=== PATIENT | male | born 1960 | race Caucasian/White ===

== ENCOUNTER 2020-08-29 00:01 | Emergency (ER) | payer OTHER ==
--- NOTE | 2020-08-29 00:20 | EDM.PDOC ---
ED HPI GENERAL MEDICAL PROBLEM - General Chief Complaint: Headache Stated Complaint: poss stroke/ chest pain Time Seen by Provider: 08/29/20 00:11 - History of Present Illness INITIAL COMMENTS - FREE TEXT/NARRATIVE: 60-year-old male presents the emergency room with a severe headache. This headache started at 11:00 our time the patient was working on his taxes and then developed severe left-sided headache on the back of his head. He has not had any noticed areas in the feet any weakness speech difficulties or difficulty with ambulation. The patient did not feel quite right this afternoon he took 2 baby aspirin. He is taking a total of 3 baby aspirin as he normally takes 1 every morning. Other than a baby aspirin in the morning the patient is not on any routine medication other than a heartburn medication, he cannot recall what it is. He does take some vitamins. The patient denies any chest pain, however, somewhere it was mentioned he had had some chest pain but the patient denies of this. Headache Pain Score (Numeric/FACES): 8 - Related Data Allergies Allergy/AdvReac Type Severity Reaction Status Date / Time No Known Allergies Allergy Verified 08/29/20 00:10 Home Meds: Home Meds . [No Known Home Meds] 08/29/20 [History] ED ROS GENERAL - Review of Systems Review Of Systems: See Below Constitutional: Reports: No Symptoms HEENT: Reports: No Symptoms Respiratory: Reports: No Symptoms Cardiovascular: Reports: No Symptoms. Denies: Chest Pain Endocrine: Reports: No Symptoms GI/Abdominal: Reports: No Symptoms : Reports: No Symptoms Musculoskeletal: Reports: Neck Pain. Denies: No Symptoms Skin: Reports: No Symptoms Neurological: Reports: Headache Psychiatric: Reports: No Symptoms Hematologic/Lymphatic: Reports: No Symptoms Immunologic: Reports: No Symptoms ED EXAM, GENERAL - Physical Exam Exam: See Below Exam Limited By: No Limitations General Appearance: Alert, No Apparent Distress Eye Exam: Bilateral Eye: EOMI, Normal Inspection, PERRL Ears: Normal External Exam, Normal Canal, Hearing Grossly Normal, Normal TMs Nose: Normal Inspection, Normal Mucosa, No Blood Throat/Mouth: Normal Inspection, Normal Lips, Normal Gums, Normal Oropharynx, Normal Voice, No Airway Compromise Head: Atraumatic Neck: Normal Inspection, Other (Vague left-sided neck pain) Respiratory/Chest: No Respiratory Distress, Lungs Clear, Normal Breath Sounds Cardiovascular: Regular Rate, Rhythm, No Edema, No Murmur GI/Abdominal: Normal Bowel Sounds, Soft, Non-Tender Back Exam: Normal Inspection, Full Range of Motion. No: CVA Tenderness (L), CVA Tenderness (R) Extremities: Normal Inspection, Normal Range of Motion, No Pedal Edema Neurological: Alert, Oriented, CN II-XII Intact, Normal Cognition, No Motor/Sensory Deficits Psychiatric: Normal Affect, Normal Mood Skin Exam: Warm, Dry, Intact Course - Vital Signs Last Recorded V/S: Last Vital Signs Temp 36.7 C 08/29/20 00:07 Pulse 64 08/29/20 01:04 Resp 16 08/29/20 01:04 BP 142/79 H 08/29/20 01:04 Pulse Ox 97 08/29/20 01:04 - Orders/Labs/Meds Orders: Active Orders 24 hr Category Date Time Status EKG Documentation Completion [RC] STAT Care 08/29/20 00:20 Active Chest 1V Frontal [CR] Stat Exams 08/29/20 00:20 Taken Head wo Cont [CT] Stat Exams 08/29/20 00:20 Taken CORONAVIRUS COVID-19 JOVAN [MOLEC] Stat Lab 08/29/20 00:42 Received Labs: Laboratory Tests 08/29/20 08/29/20 Range/Units 00:10 00:10 PT 10.9 (9.7-12.0) SECONDS INR 1.02 APTT 23.2 (21.7-31.4) SECONDS Sodium 144 (136-145) mEq/L Potassium 3.1 L (3.5-5.1) mEq/L Chloride 106 (98-107) mEq/L Carbon Dioxide 27 (21-32) mEq/L Anion Gap 14.1 (5-15) BUN 15 (7-18) mg/dL Creatinine 1.2 (0.7-1.3) mg/dL Est Cr Clr Drug Dosing 67.98 mL/min Estimated GFR (MDRD) > 60 (>60) mL/min BUN/Creatinine Ratio 12.5 L (14-18) Glucose 150 H (80-115) mg/dL Calcium 9.0 (8.5-10.1) mg/dL Total Bilirubin 0.4 (0.2-1.0) mg/dL AST 22 (15-37) U/L ALT 49 (16-63) U/L Alkaline Phosphatase 87 (46-116) U/L Troponin I < 0.017 (0.00-0.056) ng/mL Total Protein 7.6 (6.4-8.2) g/dl Albumin 4.1 (3.4-5.0) g/dl Globulin 3.5 gm/dL Albumin/Globulin Ratio 1.2 (1-2) Meds: Medications Discontinued Medications Generic Name Dose Route Start Last Admin Trade Name Penelope PRN Reason Stop Dose Admin Diphenhydramine HCl 25 mg 08/29/20 00:24 Benadryl IVPUSH 08/29/20 00:25 ONETIME ONE Fentanyl 50 mcg 08/29/20 01:02 Sublimaze IVPUSH 08/29/20 01:03 ONETIME ONE Fentanyl 50 mcg 08/29/20 01:02 08/29/20 01:06 Sublimaze IVPUSH 08/29/20 01:03 50 mcg ONETIME ONE Administration Fentanyl Confirm 08/29/20 01:04 08/29/20 01:31 Sublimaze Administered 08/29/20 01:05 Not Given Dose 100 mcg .ROUTE .STK-MED ONE Lactated Ringer's 1,000 mls @ 150 mls/hr 08/29/20 00:30 Ringers, Lactated IV ASDIRECTED [facility] Prochlorperazine Edisylate 10 52 mls @ 150 mls/hr 08/29/20 00:24 mg/ Sodium Chloride IV 08/29/20 00:44 ONETIME ONE Levetiracetam 1,000 mg/ Sodium 110 mls @ 400 mls/hr 08/29/20 01:17 Chloride IV 08/29/20 01:31 ONETIME ONE Ondansetron HCl 4 mg 08/29/20 01:29 Zofran IVPUSH 08/29/20 01:30 ONETIME ONE Ondansetron HCl 4 mg 08/29/20 01:30 Zofran IVPUSH 08/29/20 01:31 ONETIME ONE - Re-Assessments/Exams Free Text/Narrative Re-Assessment/Exam: 08/29/20 01:52 CT was rapidly obtained which is concerning for a subarachnoid hemorrhage extending into the ventricles. This was confirmed by radiology with suspicion of this coming from the [place] such as seen with an aneurysm rupture. [facility] was contacted Case was discussed with Dr. Pena who suggested we go to [place]. I did discuss this with Sadaf and case was discussed with Dr. Heredia neurosurgeon who is kindly willing to accept the patient and he recommends treating his blood pressure to keep less than 140 and giving him a gram of Ke pp[place]. However there was no flights available. At this time [facility] did call us back and thought they had a flight. Apparently weather had the flight services shut down. We checked with all the ground services and nobody has the crew or is willing to make the transfer. Was also discussed with Dr. Teresa at [facility] in [place]. Departure - Departure Time of Disposition: 01:00 Disposition: DC/Tfer to [facility] 02 Clinical Impression: Spontaneous subarachnoid hemorrhage - Discharge Information Forms: ED Department Discharge Sepsis Event Note (ED) - Evaluation Sepsis Screening Result: No Definite Risk - Focused Exam Vital Signs: Vital Signs Temp Pulse Resp BP Pulse Ox 08/29/20 01:04 64 16 142/79 H 97 08/29/20 00:07 36.7 C 77 18 148/96 H 97 - My Orders Last 24 Hours: My Active Orders 08/29/20 00:20 EKG Documentation Completion [RC] STAT Chest 1V Frontal [CR] Stat Head wo Cont [CT] Stat 08/29/20 00:42 CORONAVIRUS COVID-19 JOVAN [MOLEC] Stat - Assessment/Plan Last 24 Hours: My Active Orders 08/29/20 00:20 EKG Documentation Completion [RC] STAT Chest 1V Frontal [CR] Stat Head wo Cont [CT] Stat 08/29/20 00:42 CORONAVIRUS COVID-19 JOVAN [MOLEC] Stat
[2020-08-29] MEDS ORDERED: diphenhydrAMINE 50 MG/ML SDV IVPUSH ONE (00:24)
[2020-08-29] MEDS ORDERED: Prochlorperazine 10 MG in Sodium Chloride 0.9% 50 ML IV ONE (00:24)
[2020-08-29] MEDS ORDERED: Lactated Ringers 1,000 ML IV SCH ×2 (00:30→02:15)
[2020-08-29] MEDS ORDERED: fentaNYL 100 MCG/2 ML SDV IVPUSH ONE ×2 (01:02)
[2020-08-29] MEDS ORDERED: fentaNYL 100 MCG/2 ML SDV ONE (01:04)
[2020-08-29] MEDS ORDERED: levETIRAcetam 1,000 MG in Sodium Chloride 0.9% 100 ML IV ONE (01:17)
[2020-08-29] MEDS ORDERED: Ondansetron 4 MG/2 ML SDV ONE (01:29)
[2020-08-29] MEDS ORDERED: Ondansetron 4 MG/2 ML SDV IVPUSH ONE ×2 (01:29→01:30)
[2020-08-29] MEDS ORDERED: Labetalol 100 MG/20 ML MDV IVPUSH ONE (01:37)
[2020-08-29] MEDS ORDERED: HYDROmorphone 0.5 MG/0.5 ML Syringe IVPUSH ONE (01:49)
[2020-08-29] MEDS ORDERED: Sodium Chloride 0.9% 250 ML ONE (02:19)
[2020-08-29] MEDS ORDERED: niCARdipine HCl 25 MG in Sodium Chloride 0.9% 250 ML IV SCH ×4 (02:30)
--- NOTE | 2020-08-29 08:37 | CR ---
Chest: Portable view of the chest was obtained. Comparison: No prior chest imaging is available. Heart size and mediastinum are normal. Lungs are clear with no acute parenchymal change. No acute osseous abnormality is appreciated. Impression: 1. Nothing acute is seen on portable chest x-ray. Diagnostic code #1
--- NOTE | 2020-08-29 08:41 | CT ---
Head CT Technique: Multiple axial sections through the brain were obtained. Intravenous contrast was not utilized. Reconstructed coronal and sagittal images were obtained. Findings: Diffuse blood is seen within the suprasellar cistern extending around the kevin-mesenteric cistern and into the sylvian fissure on both sides. Findings are compatible with diffuse subarachnoid hemorrhage. Small focal area of increased density is noted within the approximate area of the communicating branch of the anterior cerebral artery likely representing an aneurysm. No acute parenchymal hemorrhage is appreciated. Blood is noted around the upper cervical spine. Bone window settings were reviewed. The visualized paranasal sinuses and mastoid sinuses show nothing acute. No acute calvarial finding is appreciated. Impression: 1. 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 2. No definite acute parenchymal change is seen. 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
== END 2020-08-29 02:25 ==
LOC: JD.ED 00:01
DX: I60.9 Nontraumatic subarachnoid hemorrhage, unspecified (principal); U07.1 COVID-19
CPT/HCPCS: 36415; 70450; 71045; 80053; 84484; 85610; 85730; 87635; 93005; 96365; 96375; 99285; J1170; J1953; J2405; J3010; J7120; 99284; U0002

== ENCOUNTER 2021-06-29 10:25 | Day surgery (SDC) | payer OTHER ==
--- NOTE | 2021-06-29 09:46 | PCM.PREANE ---
Preanesthetic Assessment - Procedure Proposed Procedure: Laparoscopic Right inguinal hernia repair with mesh, possible open, possible bilateral, possible umbilical hernia repair. - Anesthesia/Transfusion/Family Hx Anesthesia History: Prior Anesthesia Reaction Type of Anesthesia Reaction: Excessive Nausea/Vomiting Family History of Anesthesia Reaction: No Transfusion History: No Prior Transfusion(s) Intubation History: Unknown - Review of Systems General: No Symptoms Pulmonary: No Symptoms (ETOH: occasionally) Cardiovascular: No Symptoms (HTN, Right chest wall plastic implant placed for chest wall stability.) Gastrointestinal: No Symptoms (GERD-controlled) Neurological: No Symptoms (History of Subarachnoid hemorrhage: 08/2020-no chronic deficits noted) Other: Reports: None - Physical Assessment NPO Status Date: 06/28/21 NPO Status Time: 22:00 Vital Signs: HR: 60 Sat: 96% Temp: 97.8 B/P: 141/60 Resp: 14 Height: 1.83 m Weight: 94 kg ASA Class: 3 Mental Status: Alert & Oriented x3 Airway Class: Mallampati = 2 Dentition: Reports: Normal Dentition, Implants (upper permanent), Caries Thyro-Mental Finger Breadths: 3 Mouth Opening Finger Breadths: 3 ROM/Head Extension: Full Lungs: Clear to Auscultation, Normal Respiratory Effort Cardiovascular: Regular Rate, Regular Rhythm, No Murmurs - Lab Values: All labs reviewed and noted and within acceptable ranges to proceed with scheduled procedure. - Imaging/EKG Impressions: EK08/29/2020: SR rate= 66 06/29/2021: wide QRS with possible junctional rhythm rate=67 CXR: negative Echocardiogram: : EF=55% 08/30/2020: EF= 80% - Allergies Allergies/Adverse Reactions: Allergies Allergy/AdvReac Type Severity Reaction Status Date / Time No Known Allergies Allergy Verified 06/28/21 18:39 - Anesthesia Plan Pre-Op Medication Ordered: None - Acknowledgements Anesthesia Type Planned: General Anesthesia Pt an Appropriate Candidate for the Planned Anesthesia: Yes Alternatives and Risks of Anesthesia Discussed w Pt/Guardian: Yes Pt/Guardian Understands and Agrees with Anesthesia Plan: Yes PreAnesthesia Questionnaire - Past Health History Medical/Surgical History: Denies Medical/Surgical History HEENT History: Reports: Impaired Vision, Other (See Below) Other HEENT History: has reading glasses Cardiovascular History: Reports: Hypertension Respiratory History: Reports: None Gastrointestinal History: Reports: GERD Genitourinary History: Reports: None PILE DRIVER History: Reports: None Musculoskeletal History: Reports: Other (See Below) Other Musculoskeletal History: left leg fracture, finger amputation Neurological History: Reports: Other (See Below) Other Neuro History: subarachnoid hemorrhage Psychiatric History: Reports: None Endocrine/Metabolic History: Reports: None Hematologic History: Reports: None Immunologic History: Reports: None Oncologic (Cancer) History: Reports: None Dermatologic History: Reports: None - Infectious Disease History Infectious Disease History: Reports: None - Past Surgical History Head Surgeries/Procedures: Reports: None HEENT Surgical History: Reports: None Cardiovascular Surgical History: Reports: None Respiratory Surgical History: Reports: None GI Surgical History: Reports: None Female Surgical History: Reports: None Male Surgical History: Reports: None Endocrine Surgical History: Reports: None Neurological Surgical History: Reports: None Musculoskeletal Surgical History: Reports: None Oncologic Surgical History: Reports: None Dermatological Surgical History: Reports: None - SUBSTANCE USE Tobacco Use Status *Q: Never Tobacco User Recreational Drug Use History: No - HOME MEDS Home Medications: Home Meds Cartilage/Collagen/Bor/Hyalur [Joint Health Tablet] 1 tab PO DAILY 06/05/21 [History] Cholecalciferol (Vitamin D3) [Vitamin D3] 400 unit PO DAILY 06/05/21 [History] Fish Oil/[place]-3 Fatty Acids [Fish Oil 1,000 MG] 1 gm PO DAILY 06/05/21 [History] Pantoprazole Sodium [Protonix] 40 mg PO DAILY 06/05/21 [History] Turmeric 400 mg PO DAILY 06/05/21 [History] Ubidecarenone [Coq-10] 100 mg PO DAILY 06/05/21 [History] Vitamin B Complex 1 tab PO DAILY 06/05/21 [History] - CURRENT (IN HOUSE) MEDS Current Meds: Current Medications Discontinued Medications Lactated Ringer's (Ringers, Lactated) 1,000 mls @ 125 mls/hr IV ASDIRECTED MAURICIO Stop: 06/08/21 23:00 Lidocaine/Sodium Bicarbonate (Lidocaine 1%/Sod Bicarbonate In Ns 8.4% 1 Ml Syringe) 0.25 ml IDERM ONETIME PRN PRN Reason: Prior to IV Start Stop: 06/08/21 18:00 Sodium Chloride (Sodium Chloride 0.9% 10 Ml Syringe) 10 ml FLUSH ASDIRECTED PRN PRN Reason: Keep Vein Open Stop: 06/08/21 18:00
[~2021-06-29 10:25] MED LIST: Lactated Ringers 1,000 ML IV SCH; Lidocaine 1%/Sod Bicarbonate in NS 8.4% 1 ML Syringe IDERM PRN; Scopolamine 1.5 MG Transdermal Patch TRDERM PRN; Sodium Chloride 0.9% 10 ML Syringe FLUSH PRN
[2021-06-29] MEDS ORDERED: Ketorolac 30 MG/ML SDV ONE (11:18)
[2021-06-29] MEDS ORDERED: Lactated Ringers 1,000 ML ONE (11:18)
[2021-06-29] MEDS ORDERED: ceFAZolin 1 GM Vial ONE (11:18)
[2021-06-29] MEDS ORDERED: Dexamethasone 4 MG/ML 5 ML MDV ONE (11:18)
[2021-06-29] MEDS ORDERED: Rocuronium 50 MG/5 ML Vial ONE ×2 (11:18→13:33)
[2021-06-29] MEDS ORDERED: Propofol 200 MG/20 ML SDV ONE (11:18)
[2021-06-29] MEDS ORDERED: Ondansetron 4 MG/2 ML SDV ONE (11:18)
[2021-06-29] MEDS ORDERED: fentaNYL 250 MCG/5 ML SDV ONE (11:19)
[2021-06-29] MEDS ORDERED: Midazolam 1 MG/ML 2 ML SDV ONE (11:19)
[2021-06-29] MEDS ORDERED: Bupivacaine 0.5% 30 ML SDV ONE ×2 (12:23→14:03)
[2021-06-29] MEDS ORDERED: HYDROmorphone 0.5 MG/0.5 ML Syringe ONE ×2 (13:10→13:14)
[2021-06-29] MEDS ORDERED: fentaNYL 100 MCG/2 ML SDV IVPUSH PRN (13:30)
[2021-06-29] MEDS ORDERED: HYDROmorphone 0.5 MG/0.5 ML Syringe IVPUSH PRN (13:30)
[2021-06-29] MEDS ORDERED: Ondansetron 4 MG/2 ML SDV IVPUSH PRN (13:30)
[2021-06-29] MEDS ORDERED: fentaNYL 100 MCG/2 ML SDV ONE (13:49)
--- NOTE | 2021-06-29 14:51 | PCM.POSTAN ---
POST ANESTHESIA ASSESSMENT - MENTAL STATUS Mental Status: Alert, Oriented - VITAL SIGNS Vital Signs: Last Vital Signs Temp 36.6 C 06/29/21 10:00 Pulse 60 06/29/21 10:00 Resp 16 06/29/21 10:00 BP 141/60 H 06/29/21 10:00 Pulse Ox 96 06/29/21 10:00 - RESPIRATORY Respiratory Status: Respiratory Rate WNL, Airway Patent, O2 Saturation Stable, Supplemental Oxygen - CARDIOVASCULAR CV Status: Pulse Rate WNL, Blood Pressure Stable - GASTROINTESTINAL GI Status: No Symptoms - PAIN Pain Score: 0 - POST OP HYDRATION Hydration Status: Adequate & Stable
--- NOTE | 2021-06-29 15:29 | OR ---
DATE OF OPERATION: 06/29/2021 SURGEON: Erick Valdez MD PREOPERATIVE DIAGNOSIS: Right inguinal hernia and umbilical hernia. POSTOPERATIVE DIAGNOSIS: Right inguinal hernia and umbilical hernia. OPERATION PERFORMED: 1. Laparoscopic right inguinal hernia repair with mesh. 2. Primary umbilical hernia repair. ESTIMATED BLOOD LOSS: 25 mL. ANESTHESIA: General endotracheal with local consisting of 0.5% Marcaine. COMPLICATIONS: None. AVIATION TECHNICIAN: Kina Foster CNP NEED FOR ASSISTANCE: Skilled assistance of nurse practitioner, Kina Foster CNP, was needed in this case. She assisted with patient positioning, holding the camera and retractors during the case, as well as incision closure at the end of the case. INDICATIONS AND CONSENT: The patient is a 61-year-old male who had a right inguinal bulge for some time that eventually started causing some pain. He came to my clinic and I evaluated him and with imaging studies, we noted that he had a right inguinal hernia. I recommended repair due to symptoms. I also noted that he had an umbilical hernia that was causing minor symptoms as he was complaining of right periumbilical pain. I recommended we proceed with right inguinal hernia repair and umbilical hernia repair at the same time. We discussed the procedures. We discussed indications, options, risks, and benefits and the patient understood. All questions were answered and informed consent was obtained. DESCRIPTION OF PROCEDURE: The patient was taken to the operating room, placed in supine position. The patient was padded appropriately. SCDs were placed. Preop antibiotics were administered. General endotracheal anesthesia was induced. A time-out was performed. Abdomen was clipped of any hair, prepped and draped in the usual sterile fashion, and we began the procedure. We began the procedure by placing a Veress needle in the Zamora's point in the left upper quadrant. Abdomen was insufflated to 15 mmHg. Then, a 5 mm trocar was placed under direct visualization of a 5.0 scope. Abdomen was entered. The patient was placed in the reverse Trendelenburg and we inspected the inguinal hernia areas. We noted a small indirect right inguinal hernia, but the right side did not have any hernias. We inspected the abdomen. There were no injuries due to Veress needle or trocar insertion. Then, we decided to proceed with a right-sided inguinal hernia repair and TEP approach which was totally extraperitoneal approach. To do this, the abdomen was desufflated. The local was infiltrated inferior to the umbilicus. Incision was made just to the right of the umbilicus. As a result of incision, subcutaneous tissues were dissected and the anterior rectus fascia was exposed. This was incised. The rectus muscle was retracted laterally exposing the posterior fascia. A balloon dissector was inserted and insufflated. This dissected the extraperitoneal space and two additional 5 mm trocars were placed in the lower midline. Then, we proceeded with exposing the Juan Carlos's ligament in the pubic area and then we dissected laterally all the way to the ASIS. Then, the hernia sac was taken down and there was a large lipoma of the cord which was also taken down. The peritoneal edge was dissected about 5 cm proximal to the hernia. Once the dissection was done, we placed a 3DMax knitted right-sided mesh and placed so that it was covering the entire myopectineal orifice and this was secured in two places; medially at the Juan Carlos's ligament with SorbaFix, and laterally, above the ASIS. 20 mL of 0.5% Marcaine were injected into the dissection area for local anesthetic and then the mesh edge was held against the abdominal wall to prevent anything from sneaking under it while desufflating and the abdomen was desufflated. Once this was done, we proceeded with closure of the anterior fascia with 0 Vicryl in a running fashion and then started doing the umbilical hernia. This was done in open way. The infraumbilical incision was extended slightly to the left and then using Metzenbaum scissors, the hernia sac was isolated. This consisted of preperitoneal fat. The contents were divided and removed, and the hernia defect measured about 1 cm. Therefore, decision was made to proceed with primary hernia repair. A 0 Vicryl was brought into the field and a running stitch was placed to reapproximate the fascia. The umbilical stalk was reattached to the fascia with 2-0 Vicryl stitch and the 5 cm infraumbilical incision was closed in two layers. The deep subcutaneous tissues were reapproximated with 2-0 Vicryl, and subcuticular layer was reapproximated with 4-0 Monocryl. Then, the remaining three laparoscopic sites were closed at the skin level with 4-0 Monocryl. Dermabond was then applied. Then, additional local anesthetic was infiltrated in the incision areas and the procedure was concluded. Count was correct x2. The patient was extubated and taken to the PACU for recovery. Patient to be allowed to return home with pain medication and MiraLAX and follow up with me in two weeks. Patient is instructed not to lift more than 20 pounds for four weeks. MMODAL /[id number]
--- NOTE | 2021-06-29 15:44 | PCM48HPAN ---
Post Anesthesia Note - EVALUATION WITHIN 48HRS OF ANESTHETIC Vital Signs in Normal Range: Yes Patient Participated in Evaluation: Yes Respiratory Function Stable: Yes Airway Patent: Yes Cardiovascular Function Stable: Yes Hydration Status Stable: Yes Pain Control Satisfactory: Yes Nausea and Vomiting Control Satisfactory: Yes Mental Status Recovered: Yes Vital Signs: Last Vital Signs Temp 36.6 C 06/29/21 15:30 Pulse 52 L 06/29/21 15:30 Resp 16 06/29/21 15:30 BP 118/78 06/29/21 15:30 Pulse Ox 98 06/29/21 15:30
== END 2021-06-29 17:20 | disposition home or self-care (01) ==
LOC: JD.SDS 10:25
PROVIDERS: ATTEND Surgery
DX: K40.90 Unilateral inguinal hernia, without obstruction or gangrene, not specified as recurrent (principal); K42.9 Umbilical hernia without obstruction or gangrene; D17.6 Benign lipomatous neoplasm of spermatic cord; K21.9 Gastro-esophageal reflux disease without esophagitis; I10 Essential (primary) hypertension; Z98.890 Other specified postprocedural states; Z79.899 Other long term (current) drug therapy; Z88.8 Allergy status to other drugs, medicaments and biological substances
CPT/HCPCS: 49585; 49650; A9270; C1781; J0690; J1100; J1170; J1885; J2250; J2405; J2704; J2710; J3010; J3490; J7120; 00840

== ENCOUNTER 2024-06-03 23:43 | Emergency (ER) | payer MEDICARE, OTHER ==
[2024-06-03] MEDS ORDERED: Sodium Chloride 0.9% 10 ML Syringe FLUSH PRN (23:59)
[2024-06-04 00:01] LABS: BASOPHILS ABSOLUTE AUTO 0.1 K/mm3 (0.0-0.2); BASOPHILS PERCENT AUTO 0.6 % (0.0-1.0); EOSINOPHILS ABSOLUTE AUTO 0.6 K/mm3 (0.0-0.4); EOSINOPHILS PERCENT AUTO 4.5 % (0.0-6.0); HEMATOCRIT 46.3 % (42.0-52.0); HEMOGLOBIN 15.5 gm/dl (14.0-18.0); IMMATURE GRAN ABSOLUTE AUTO 0.03 K/mm3 (0.00-0.05); IMMATURE GRAN PERCENT AUTO 0.2 % (0.0-0.4); LYMPHOCYTES ABSOLUTE AUTO 3.8 K/mm3 (1.0-4.8); LYMPHOCYTES PERCENT AUTO 30.6 % (24.0-44.0); MEAN CORPUSCULAR HEMOGLOBIN 28.9 pg (28.0-32.0); MEAN CORPUSCULAR HGB CONC 33.5 g/dl (32.0-36.0); MEAN CORPUSCULAR VOLUME 86.4 fl (83.0-99.0); MEAN PLATELET VOLUME 10.4 fl (9.4-12.4); MONOCYTES ABSOLUTE AUTO 1.5 K/mm3 (0.0-0.8); MONOCYTES PERCENT AUTO 11.8 % (0.0-8.0); NEUTROPHILS ABSOLUTE AUTO 6.6 K/mm3 (1.8-7.7); NEUTROPHILS PERCENT AUTO 52.3 % (41.0-71.0); PLATELET COUNT,PLT 269 K/mm3 (150-400); RED BLOOD CELL COUNT 5.36 M/mm3 (4.52-5.90)
[2024-06-04 00:21] LABS: A/G RATIO 0.8 (1-2); ALBUMIN 3.4 g/dl (3.4-5.0); ANION GAP 10.8 (5-15); BILIRUBIN TOTAL 0.5 mg/dL (0.2-1.0); BUN/CREATININE RATIO 15.5 (14-18); CALCIUM 9.4 mg/dL (8.5-10.1); CREATININE 1.1 mg/dL (0.7-1.3); EST CRCL DRUG DOSING (CG) 68.21 mL/min; POTASSIUM,K 3.8 mEq/L (3.5-5.1); PROTEIN TOTAL,TP 7.7 g/dl (6.4-8.2)
[2024-06-04 00:24] LABS: C-REACTIVE PROTEIN 15.88 mg/dL (<0.30)
[2024-06-04 00:41] LABS: TROPONIN I HIGH SENSITIVITY < 4 pg/mL (<=76)
[2024-06-04] MEDS: Acetaminophen 325 MG Tab PO ONE (00:59)
[2024-06-04] MEDS: Iopamidol 755 Mg/ML 100 ML Bottle IVPUSH ONE (01:07)
[2024-06-04] MEDS: Sodium Chloride 0.9% 100 ML IV SCH (01:07)
[2024-06-04] MEDS: methylPREDNISolone Sodium Succinate 125 MG/2 ML SDV IVPUSH ONE (02:42)
[2024-06-04] MEDS: HYDROmorphone 0.5 MG/0.5 ML Syringe IVPUSH ONE (02:42)
[2024-06-04] MEDS: Albuterol/Ipratropium 3.0-0.5 MG/3 ML Neb Soln NEB ONE (02:45)
[2024-06-04 03:29] LABS: CORONAVIRUS COVID-19 NAA NEGATIVE (NEGATIVE); INFLUENZA A NAA NEGATIVE (NEGATIVE); RESPIRATORY SYNCYTIAL VIR NAA NEGATIVE (NEGATIVE)
[2024-06-04] MEDS: Albuterol 0.083% 2.5 MG/3 ML Neb Soln NEB ONE (04:35)
[2024-06-04] MEDS: cefTRIAXone 1 GM in Sodium Chloride 0.9% 100 ML IV ONE (04:56)
[2024-06-04] MEDS: Azithromycin 500 MG in Sodium Chloride 0.9% 250 ML IV ONE (05:24)
== END 2024-06-04 06:52 | disposition home or self-care (01) ==
LOC: JD.ED 23:43
DX: J18.9 Pneumonia, unspecified organism (principal); I10 Essential (primary) hypertension; K21.9 Gastro-esophageal reflux disease without esophagitis; Z86.16 Personal history of COVID-19; Z79.899 Other long term (current) drug therapy
CPT/HCPCS: 0241U; 36415; 71045; 71275; 80053; 84484; 85025; 85379; 86140; 94640; 96365; 96367; 96375; 99285; A9270; J0456; J0696; J1171; J2919; J3490; J7050; Q9967; J7620-GY